=== PATIENT | female | born 1950 | race Caucasian/White ===

== ENCOUNTER → 2016-09-15 | Outpatient (CLI) | payer MEDICARE, BC ==
[2016-09-15 15:12] LABS: HEMOGLOBIN 13.7 g/dL (12.2-16.2); LYMPH # 1.7 K/mm3 (0.7-4.5)
[2016-09-15 16:15] LABS: BUN 18 mg/dL (7-18)
[2016-09-15 16:16] LABS: GFR (ESTIMATED) 71 ML/MIN (59-)
== END ==
LOC: LAB 14:41 → RT 14:41
PROVIDERS: Surgery
DX: K80.12 Calculus of gallbladder with acute and chronic cholecystitis without obstruction (principal); Z01.810 Encounter for preprocedural cardiovascular examination; Z01.811 Encounter for preprocedural respiratory examination; Z01.812 Encounter for preprocedural laboratory examination

== ENCOUNTER 2016-09-25 06:10 | Day surgery (SDC) | payer MEDICARE, BC ==
[~2016-09-25] VITALS: Ht 167.6 cm; Wt 97.1 kg
--- NOTE | 2016-09-25 08:12 | Operative Note ---
Surgeon/Diagnoses Surgeon/Preventive Medicine Specialist(s) Date of procedure: 09/25/16 Surgeon: MD Angeli Lopez Diagnoses Pre-op diagnosis: Chronic calculus cholecystitis Post-op diagnosis Same Procedure Procedure Procedure: Laparoscopic cholecystectomy Indications: ANDRE HEREDIA is a 66 year-old Female with a history of upper abdominal discomfort and radiographic evidence of chronic calculus cholecystitis. Findings: Mild fat stranding around the infundibulum Procedure Description: After informed consent was obtained, the patient was taken to the operating room and placed in the supine position. General anesthesia was induced and the patient's abdomen was prepped and draped in a sterile fashion. After infiltration with local anesthetic an infraumbilical incision was made. A Veress needle was placed in position. The abdomen was insufflated. A 5 mm optical trocar was placed in position. Under direct visualization, 2 additional 5 mm trocars were placed in the RIGHT upper quadrant. A 12 mm trocar was placed in the subxiphoid position. The gallbladder was elevated up and over the liver margin. The tissue around the cystic duct was carefully dissected. Clips were placed proximally and the duct was transected at the infundibulum utilizing harmonic freda. Harmonic freda were then utilized to remove the gallbladder from the liver margin. The gallbladder was placed in a retrieval bag and removed through the subxiphoid trocar site. The RIGHT upper quadrant was thoroughly irrigated. No active bleeding or bile leak was noted. The fascia at the subxiphoid trocar site was reapproximated utilizing the ngozi-close device. Pneumoperitoneum was released as the remaining trocars were removed. All wounds were irrigated and skin was closed with 4-0 Monocryl in a subcuticular fashion. Steri-Strips were applied and the patient's anesthetic agents were reversed. After extubation, the patient was transferred to recovery in stable condition. EBL (ml): 15 Anesthesia: GETA Complications: no immediate Specimens: Gallbladder and contents Disposition Disposition: Stable to recovery from where she will be discharged home. She will follow up in 1-2 weeks. at 0811
--- NOTE | 2016-09-25 08:23 | Anesthesia Record ---
Anesthesia Record Part II Discharge time: 844 Destination: Same day surgery PACU nurse assessment review? Yes Patient is: Stable Anesthesia complications? No at 0823
--- NOTE | 2016-09-25 08:23 | Anesthesia Record ---
Anesthesia Record Part I Total IV fluids: 1100 EBL (ml): 15 Urine Output: 0 B/P: 141/65 % SaO2: 93 Pulse: 90 Resps: 16 Temp: 98.8 Patient is: Drowsy, Nasal O2, Stable Stable to PACU at: 0815 at 0822
[2016-09-25 13:50] VITALS: BP 152/106
== END 2016-09-25 12:10 | disposition home or self-care (01) ==
LOC: SDC 06:10
PROVIDERS: Surgery
PROC: 0FT44ZZ Resection of Gallbladder, Percutaneous Endoscopic Approach (ICD-10-PCS; principal; 2016-09-25 07:30)
DX: K80.10 Calculus of gallbladder with chronic cholecystitis without obstruction (principal); E11.9 Type 2 diabetes mellitus without complications
CPT/HCPCS: J0131; J2405; J2710